=== PATIENT | male | born 2000 | race Asian ===

== ENCOUNTER 2021-01-09 15:08 | Emergency (ER) | payer OTHER ==
[~2021-01-09] VITALS: Ht 180.3 cm; Wt 59.0 kg
[2021-01-09] MEDS ORDERED: PANTOPRAZOLE 40 MG/10 ML VIAL INJ IV STA (15:17)
[2021-01-09] MEDS ORDERED: PROCHLORPERAZINE EDISYLATE 5 MG/ML 2ML VIAL IV ONE (15:30)
[2021-01-09] MEDS ORDERED: MORPHINE SULFATE 4 MG/ML SYR/VIAL IV ONE (15:30)
[2021-01-09] MEDS ORDERED: SODIUM CHLORIDE 0.9% 1,000 ML IVB ONE (15:30)
[2021-01-09 16:05] LABS: Basophils # (auto) 0 10 ^3/uL (0-0.2); Basophils % (auto) 0.5 % (0.0-2.0); Eosinophils # (auto) 0 10 ^3/uL (0-0.8); Hematocrit 41.8 % (41.0-53.0); Hemoglobin 14.6 g/dL (13.5-17.5); Lymphocytes # (auto) 0.9 10 ^3/uL (0.4-5.4); Mean Corpuscular Hemoglobin 31.8 pg (28.0-32.0); Mean Corpuscular Hgb Conc. 34.9 g/dL (32.0-36.0); Mean Corpuscular Volume 91.1 fL (80.0-100.0); Monocytes # (auto) 0.3 10 ^3/uL (0-1.3); Monocytes % (auto) 3.4 % (0.0-12.0); Neutrophils # (auto) 8.7 10 ^3/uL (1.6-8.6); Neutrophils % (auto) 87.1 % (37.0-80.0); Nucleated Red Blood Cells % 0.1 %; Red Blood Cells 4.59 10^6/uL (4.5-5.90); Red Cell Distribution Width 13.1 % (11.8-14.3)
[2021-01-09 16:20] LABS: Albumin 4.9 g/dL (3.4-5.0); Calcium 9.4 mg/dL (8.5-10.1); Magnesium 2.2 mg/dL (1.6-2.6); Potassium 3.1 mmol/L (3.5-5.1)
[2021-01-09 16:22] LABS: BUN/Creatinine Ratio 16.4
[2021-01-09 16:30] LABS: Bilirubin, Total 2.2 mg/dL (0.2-1.0); Total Protein 8.4 g/dL (6.4-8.2)
[2021-01-09] MEDS ORDERED: POTASSIUM CHL 20MEQ/100ML 100 ML IV ONE (17:30)
[2021-01-09 19:26] VITALS: BP 117/61
== END 2021-01-09 19:38 | disposition home or self-care (01) ==
LOC: ER 15:08
DX: R11.2 Nausea with vomiting, unspecified (principal); E87.6 Hypokalemia; E80.6 Other disorders of bilirubin metabolism
CPT/HCPCS: 36415; 76705; 80053; 83690; 83735; 85025; 96361; 96365; 96366; 96375; 99284; C9113; J0780; J2270; J3480